=== PATIENT | female | born 1970 | race Caucasian/White ===

== ENCOUNTER 2019-06-02 15:33 | Emergency (ER) | payer MEDICAID ==
[~2019-06-02] VITALS: Ht 154.9 cm; Wt 99.8 kg
[2019-06-02 15:33] VITALS: BP_SYST 128
[2019-06-02] MEDS ORDERED: INSULIN REGULAR, HUMAN 100 UNITS/ML, 10 ML VIAL SUBCUT ONE (15:45)
[2019-06-02] MEDS ORDERED: NACL 0.9% 1,000 ML IV ONE ×2 (15:45→17:45)
[2019-06-02] MEDS ORDERED: INSULIN REGULAR, HUMAN 100 UNITS/ML, 10 ML VIAL (humuLIN R) ONE ×2 (16:06→18:37)
[2019-06-02 16:13] LABS: BASOPHILS # (AUTO) 0.1 K/uL (0.0-0.2); BASOPHILS % (AUTO) 0.7 % (0.0-2.0); EOSINOPHILS # (AUTO) 0.1 K/uL (0.0-0.4); HEMATOCRIT 41.6 % (36-48); HEMOGLOBIN 13.7 g/dL (12.0-16.0); LYMPHOCYTES % (AUTO) 30.7 % (20.5-51.5); MEAN CORPUSCULAR HEMOGLOBIN 28 pg (27-31); MEAN CORPUSCULAR HGB CONC 33 % (32-36); MEAN CORPUSCULAR VOLUME 84 fL (79.0-98.0); MONOCYTES # (AUTO) 0.5 K/uL (0.0-1.0); MONOCYTES % (AUTO) 5.5 % (1.7-9.3); NEUTROPHILS # (AUTO) 6.1 K/uL (1.8-7.7); NEUTROPHILS % (AUTO) 62.1 % (40.0-70.0); PLATELET COUNT (AUTO) 248 K/uL (130-430); RED BLOOD CELL COUNT(AUTO) 4.93 MIL/uL (4.2-6.2); RED CELL DISTRIBUTION WIDTH 14.6 % (9.0-15.0); WHITE BLOOD COUNT (AUTO) 9.9 K/uL (4.8-10.8)
[2019-06-02 16:35] LABS: CALCIUM 9.4 mg/dL (8.4-11.0); CREATININE 0.97 mg/dL (0.55-1.30); POTASSIUM 4.1 mmol/L (3.5-5.1)
[2019-06-02 16:43] LABS: TOTAL BILIRUBIN 0.3 mg/dL (0.0-1.0)
[2019-06-02 16:44] LABS: ALBUMIN 2.9 g/dL (3.4-4.8)
[2019-06-02] MEDS ORDERED: INSULIN REGULAR, HUMAN 100 UNITS/ML, 10 ML VIAL IV ONE (17:45)
[2019-06-02 17:52] LABS: BARBITURATE, URINE NEGATIVE (NEG <=200); BENZODIAZEPINE, URINE NEGATIVE (NEG <=150); CANNABINOID, URINE NEGATIVE (NEG <=50); COCAINE, URINE NEGATIVE (NEG <=150); METHAMPHETAMINES SCREEN,URINE POSITIVE (NEG <=500); OPIATE, URINE NEGATIVE (NEG <=100); PHENCYCLIDINE SCREEN,URINE NEGATIVE (NEG <=25); UR TRICYCLIC ANTIDEPRESSANTS NEGATIVE (NEG <=300); URINE AMPHETAMINE POSITIVE (NEG <=500); URINE METHADONE NEGATIVE (NEG <=200); URINE OXYCODONE SCREEN NEGATIVE (NEG <=100); URINE PROPOXYPHENE SCREEN NEGATIVE (NEG <=300)
[2019-06-02] MEDS ORDERED: MORPHINE 4 MG/ML INJ. SYRINGE IVP ONE (19:15)
[2019-06-02 23:10] VITALS: BP_SYST 115
[2019-06-03 00:38] LABS: BILIRUBIN,URINE NEGATIVE (NEGATIVE); BLOOD, URINE NEGATIVE (NEGATIVE); CLARITY/URINE CLEAR (CLEAR); COLOR,URINE YELLOW (YELLOW); GLUCOSE,URINE 3+ (NEGATIVE); KETONES,URINE NEGATIVE (NEGATIVE); LEUKOCYTE ESTERASE ,URINE NEGATIVE (NEGATIVE); NITRITE, URINE NEGATIVE (NEGATIVE); PH,URINE 5.5 (5.0-8.0); PROTEIN URINE NEGATIVE (NEGATIVE); UROBILINOGEN,URINE 0.2 (0.2-1.0)
[2019-06-03 01:14] LABS: BACTERIA,URINE FEW /HPF (None Seen); RBC,URINE 0-3 /HPF (0-3); WBC,URINE 0-3 /HPF (0-3); YEAST,URINE Few /HPF (None Seen)
== END 2019-06-02 23:41 | disposition short-term general hospital (02) ==
LOC: SED 15:33
DX: E11.65 Type 2 diabetes mellitus with hyperglycemia (principal); F15.10 Other stimulant abuse, uncomplicated; J45.909 Unspecified asthma, uncomplicated; I10 Essential (primary) hypertension; Z86.79 Personal history of other diseases of the circulatory system
CPT/HCPCS: 36415; 80053; 80307; 81000; 82962; 85025; 96361; 96372; 96374; 96375; 99285; J1815; J2270; J7030

== ENCOUNTER 2019-09-02 11:20 | Emergency (ER) | payer MEDICAID ==
[~2019-09-02] VITALS: Ht 157.5 cm; Wt 83.9 kg
[2019-09-02 11:20] VITALS: BP_SYST 113
--- NOTE | 2019-09-02 11:20 | NUR ---
Patient to ER bed 01 to gown for evaluation. Side rails up. Report given to Angela.
--- NOTE | 2019-09-02 11:25 | NUR ---
PT BIB EMS. PER EMS PT WAS AT [facility] WHEN SHE CALLED 911 BECAUSE SHE DIDNT FEEL WELL. PER EMS, BS WAS 484 IN FIELD AND BP WAS 71/45. PER EMS PT AT [facility] COUPLE DAYS AGO FOR SAME THING BUT LWBS BECAUSE SHE DIDNT WANT TO WAIT. PT LETHARGIC. PT HAS NO LABORED BREATHING. PT DENIES PAIN AND SOB. PT STATES SHE IS DIZZY. PT NON COMPLIANT WITH DM MEDS. PT ON MONITOR. WILL CONTINUE TO MONITOR. Addendum: 09/02/19 at 1144 by SEDA PT ALSO COMPLAINING OF URINARY RETENTION AND FEELING LIKE SHE HAS TO URINATE BUT CANT. PT HAS FREQUENCY.
--- NOTE | 2019-09-02 11:28 | NUR ---
ER Dr. VILLALOBOS at bedside examining patient.
[2019-09-02] MEDS ORDERED: NACL 0.9% 1,000 ML IV ONE ×2 (11:30→13:00)
--- NOTE | 2019-09-02 11:53 | NUR ---
PT GETTING X RAY IN BED.
[2019-09-02 12:02] LABS: BASOPHILS % (AUTO) 0.6 % (0.0-2.0); EOSINOPHILS # (AUTO) 0.1 K/uL (0.0-0.4); HEMOGLOBIN 13.8 g/dL (12.0-16.0); LYMPHOCYTES # (AUTO) 2.4 K/uL (1.0-5.5); LYMPHOCYTES % (AUTO) 29.7 % (20.5-51.5); MEAN CORPUSCULAR HEMOGLOBIN 28 pg (27-31); MEAN CORPUSCULAR HGB CONC 33 % (32-36); MEAN CORPUSCULAR VOLUME 86 fL (79.0-98.0); MONOCYTES # (AUTO) 0.5 K/uL (0.0-1.0); MONOCYTES % (AUTO) 5.7 % (1.7-9.3); NEUTROPHILS # (AUTO) 5.2 K/uL (1.8-7.7); PLATELET COUNT (AUTO) 254 K/uL (130-430); RED CELL DISTRIBUTION WIDTH 14.7 % (9.0-15.0); WHITE BLOOD COUNT (AUTO) 8.2 K/uL (4.8-10.8)
[2019-09-02 12:13] LABS: ANION GAP 7 (5-15); CALCIUM 8.5 mg/dL (8.4-11.0); CHLORIDE 98 mmol/L (98-107); CREATININE 1.12 mg/dL (0.55-1.30); POTASSIUM 3.6 mmol/L (3.5-5.1); SODIUM SERUM 132 mmol/L (136-145); UREA NITROGEN, BLOOD 19 mg/dL (8-21)
[2019-09-02 12:19] LABS: ALANINE AMINOTRANSFERASE 21 U/L (12-78); ALBUMIN 2.9 g/dL (3.4-4.8); ASPARTATE AMINOTRANSFERASE 12 U/L (10-37); TOTAL BILIRUBIN 0.5 mg/dL (0.0-1.0)
[2019-09-02 12:24] LABS: GFR AFRICAN AMERICAN 66 mL/min (>90); GLUCOSE 491 mg/dL (70-99)
[2019-09-02 12:36] LABS: BILIRUBIN,URINE NEGATIVE (NEGATIVE); BLOOD, URINE NEGATIVE (NEGATIVE); CLARITY/URINE CLEAR (CLEAR); COLOR,URINE YELLOW (YELLOW); GLUCOSE,URINE 3+ (NEGATIVE); KETONES,URINE NEGATIVE (NEGATIVE); LEUKOCYTE ESTERASE ,URINE TRACE (NEGATIVE); NITRITE, URINE NEGATIVE (NEGATIVE); PROTEIN URINE NEGATIVE (NEGATIVE); UROBILINOGEN,URINE 0.2 (0.2-1.0)
[2019-09-02 12:48] LABS: RBC,URINE 0-3 /HPF (0-3)
[2019-09-02 12:49] LABS: BACTERIA,URINE RARE /HPF (None Seen)
[2019-09-02 12:50] LABS: TRICHOMONAS,URINE Rare /HPF (None Seen)
[2019-09-02 12:51] LABS: ACETONE, SERUM NEGATIVE (NEGATIVE)
[2019-09-02] MEDS ORDERED: INSULIN REGULAR, HUMAN 10 UNITS/0.1 ML INJ IVP ONE (13:00)
[2019-09-02] MEDS ORDERED: POTASSIUM CHLORIDE 10 MEQ TAB.PRT.SR PO ONE (13:00)
[2019-09-02] MEDS ORDERED: MAGNESIUM SULFATE 50 ML IV ONE (13:00)
[2019-09-02 13:05] LABS: INR 0.9 (0.8-1.2); PROTHROMBIN TIME 9.1 SECS (9.5-12.5)
--- NOTE | 2019-09-02 13:15 | NUR ---
Pt moved to bed 07
--- NOTE | 2019-09-02 13:30 | NUR ---
Pt requesting something to eat, Dr Ball notified
[2019-09-02] MEDS ORDERED: ONDANSETRON HCL 4 MG/2 ML VIAL IVP ONE (13:45)
[2019-09-02] MEDS ORDERED: ONDANSETRON HCL 4 MG/2 ML VIAL ONE (13:52)
[2019-09-02] MEDS ORDERED: LEVOFLOXACIN 500 MG/D5W 100 ML IV ONE (14:00)
[2019-09-02] MEDS ORDERED: NS 500 ML IV ONE (14:00)
--- NOTE | 2019-09-02 14:05 | NUR ---
Pt states she does not want to go home, she wants to be admitted
[2019-09-02] MEDS ORDERED: LEVOFLOXACIN 500 MG TABLET PO ONE (14:30)
--- NOTE | 2019-09-02 14:45 | NUR ---
BS 248 at this time, Dr Ball notified, Dr Ball agreeable to give a sandwich, food given to patient, well tolerated.
--- NOTE | 2019-09-02 15:30 | NUR ---
Pt agitated at this time, states she wants a hot dinner ,
--- NOTE | 2019-09-02 15:30 | NUR ---
fuller brush worker at bedside, resources given to patient
--- NOTE | 2019-09-02 15:35 | NUR ---
ER SS consult HOSE SEAMER met w/ Pt. at bedside to provide homeless resources, tap card. Consult w/ MD who reported Pt is malingering and being difficult with staff alluded to S/I. Pt was initially cooperative, she was informed of local homeless shelters, [facility] and [facility] in [place]. Pt. became argumentative when informed she was being D/C from the hospital, she reported she was not leaving until she had " a place to sleep tonight and a meal". She complained that " all those places is just a big run around and [place] I need a place now". HOSE SEAMER informed Pt. that she could assist her setting up an intake and it would be up to her if she decided to follow up. Pt. denied any active S/I alluded " I would if [place] [facility] a [facility] then recanted., appears to manipulating to remain in the hospital as she then states she would not self harm and only needs " a place to stay" HOSE SEAMER confirmed intake for Pt. at [facility] tomorrow at 7am, including an intake at the [facility] today before 530 pm. Pt. was given the information and became more upset and reported that she did not want to participate in any intakes. She was informed of 24/hr emergency shelters in [facility] and she stated that was too far for her. HOSE SEAMER provided Pt. with [facility] information and Mental Health services , suicide hotline. She was not receptive to the information and became more hostile and continued to make curse. Pt. remained demanding and unreasonable. Pt. was provided with transportation and resources, no further intervention required. HOSE SEAMER spoke with RN Pt. is suitable for D/C, security should be called due to escalating behavior, made aware if Pt. continues to make suicidal threats to consult w/ PET. No further intervention at this time.
--- NOTE | 2019-09-02 15:45 | NUR ---
Pt coursing at this time, agitated at this time, security at bedside, pt notified she is discharged by
[2019-09-02 16:00] VITALS: BP_SYST 119
--- NOTE | 2019-09-02 16:00 | NUR ---
Patient given written and verbal discharge instructions and verbalizes understanding. ER MD discussed with patient the results and treatment provided. Patient in stable condition. ID arm band removed. Pt removed IV catheter from L hand, pt combative at this time. Rx of Cipro and Metformin given. Patient educated on pain management and to follow up with PMD. Pain Scale 0/10. Opportunity for questions provided and answered. Medication side effect fact sheet provided.
== END 2019-09-02 16:00 | disposition home or self-care (01) ==
LOC: SED 11:20
DX: E11.65 Type 2 diabetes mellitus with hyperglycemia (principal); N39.0 Urinary tract infection, site not specified; I10 Essential (primary) hypertension; J45.909 Unspecified asthma, uncomplicated; Z86.73 Personal history of transient ischemic attack (TIA), and cerebral infarction without residual deficits; Z86.79 Personal history of other diseases of the circulatory system
CPT/HCPCS: 36415; 71045; 80053; 81000; 82009; 82962; 83605; 84484; 85025; 85610; 85730; 87040; 87086; 93005; 96361; 96365; 96375; 99284; J1815; J2405; J3475; J7030

== ENCOUNTER 2023-10-13 18:07 | Emergency (ER) | payer MEDICAID ==
[~2023-10-13] VITALS: Ht 172.7 cm; Wt 108.9 kg
[2023-10-13 18:20] VITALS: BP_SYST 128; PULSE 74; RESP 18; TEMP 97.7; O2SAT 97
[2023-10-13 20:45] LABS: BILIRUBIN,URINE NEGATIVE (NEGATIVE); BLOOD, URINE 2+ (NEGATIVE); CLARITY/URINE CLEAR (CLEAR); COLOR,URINE YELLOW (YELLOW); GLUCOSE,URINE 1+ (NEGATIVE); KETONES,URINE NEGATIVE (NEGATIVE); LEUKOCYTE ESTERASE ,URINE NEGATIVE (NEGATIVE); NITRITE, URINE NEGATIVE (NEGATIVE); PROTEIN URINE 3+ (NEGATIVE); UROBILINOGEN,URINE 0.2 (0.2-1.0)
[2023-10-13 21:00] LABS: BASOPHILS % (AUTO) 0.3 % (0.0-2.0); EOSINOPHILS # (AUTO) 0.1 K/uL (0.0-0.4); EOSINOPHILS % (AUTO) 1.1 % (0.0-4.0); HEMATOCRIT 30.5 % (36-48); HEMOGLOBIN 9.6 g/dL (12.0-16.0); LYMPHOCYTES # (AUTO) 3.2 K/uL (1.0-5.5); LYMPHOCYTES % (AUTO) 26.9 % (20.5-51.5); MEAN CORPUSCULAR HEMOGLOBIN 25 pg (27-31); MEAN CORPUSCULAR HGB CONC 32 % (32-36); MEAN CORPUSCULAR VOLUME 81 fL (79.0-98.0); MONOCYTES # (AUTO) 0.8 K/uL (0.0-1.0); MONOCYTES % (AUTO) 6.7 % (1.7-9.3); NEUTROPHILS # (AUTO) 7.6 K/uL (1.8-7.7); PLATELET COUNT (AUTO) 286 K/uL (130-430); RED BLOOD CELL COUNT(AUTO) 3.78 MIL/uL (4.2-6.2); RED CELL DISTRIBUTION WIDTH 15.5 % (9.0-15.0); WHITE BLOOD COUNT (AUTO) 11.8 K/uL (4.8-10.8)
[2023-10-13 21:13] LABS: ANION GAP 4 (5-15); CALCIUM 9.3 mg/dL (8.4-11.0); CARBON DIOXIDE 29 mmol/L (23-29); CHLORIDE 102 mmol/L (98-107); CREATININE 0.91 mg/dL (0.55-1.30); GFR AFRICAN AMERICAN 83 mL/min (>90); GLUCOSE 142 mg/dL (74-106); POTASSIUM 4.7 mmol/L (3.5-5.1); SODIUM SERUM 135 mmol/L (136-145); UREA NITROGEN, BLOOD 25 mg/dL (8-21)
[2023-10-13 21:17] LABS: ALANINE AMINOTRANSFERASE 17 U/L (12-78); ASPARTATE AMINOTRANSFERASE 12 U/L (10-37); TOTAL BILIRUBIN 0.1 mg/dL (0.0-1.0)
[2023-10-13 21:24] LABS: BACTERIA,URINE None Seen /HPF (None Seen)
[2023-10-13 21:28] LABS: GFR NON AFRICAN-AMERICAN 68 mL/min (>90)
[2023-10-13 23:48] VITALS: BP_SYST 160; PULSE 84; RESP 18; TEMP 96.9; O2SAT 96
== END 2023-10-13 23:48 | disposition home or self-care (01) ==
LOC: SED 18:07
DX: R60.0 Localized edema (principal); Z79.899 Other long term (current) drug therapy; J45.909 Unspecified asthma, uncomplicated; E11.9 Type 2 diabetes mellitus without complications; I10 Essential (primary) hypertension
CPT/HCPCS: 36415; 71250-TC; 76376; 80053; 81000; 81001; 81015; 84484; 85025; 93005; 99284

== ENCOUNTER 2023-10-28 06:43 | Inpatient (IN) | payer MEDICAID ==
[~2023-10-28] VITALS: Ht 152.4 cm; Wt 98.5 kg
[2023-10-28 06:47] VITALS: BP_SYST 146; PULSE 92; RESP 18; TEMP 98.3; O2SAT 96
[2023-10-28] MEDS ORDERED: NITROGLYCERIN 1 INCH (GM) OINT. TP ONE (07:00)
[2023-10-28 07:24] LABS: BASOPHILS # (AUTO) 0.1 K/uL (0.0-0.2); BASOPHILS % (AUTO) 0.6 % (0.0-2.0); EOSINOPHILS # (AUTO) 0.1 K/uL (0.0-0.4); EOSINOPHILS % (AUTO) 1.1 % (0.0-4.0); HEMOGLOBIN 10.6 g/dL (12.0-16.0); LYMPHOCYTES # (AUTO) 2.5 K/uL (1.0-5.5); LYMPHOCYTES % (AUTO) 21.6 % (20.5-51.5); MEAN CORPUSCULAR HEMOGLOBIN 25 pg (27-31); MEAN CORPUSCULAR HGB CONC 32 % (32-36); MEAN CORPUSCULAR VOLUME 79 fL (79.0-98.0); MONOCYTES # (AUTO) 0.5 K/uL (0.0-1.0); MONOCYTES % (AUTO) 4.6 % (1.7-9.3); NEUTROPHILS # (AUTO) 8.3 K/uL (1.8-7.7); NEUTROPHILS % (AUTO) 72.1 % (40.0-70.0); PLATELET COUNT (AUTO) 314 K/uL (130-430); RED BLOOD CELL COUNT(AUTO) 4.17 MIL/uL (4.2-6.2); RED CELL DISTRIBUTION WIDTH 15.7 % (9.0-15.0); WHITE BLOOD COUNT (AUTO) 11.5 K/uL (4.8-10.8)
[2023-10-28 07:36] LABS: ANION GAP 7 (5-15); CALCIUM 9.5 mg/dL (8.4-11.0); CARBON DIOXIDE 27 mmol/L (23-29); CHLORIDE 102 mmol/L (98-107); CREATININE 0.97 mg/dL (0.55-1.30); GFR AFRICAN AMERICAN 77 mL/min (>90); GLUCOSE 176 mg/dL (74-106); POTASSIUM 4.2 mmol/L (3.5-5.1); SODIUM SERUM 136 mmol/L (136-145); UREA NITROGEN, BLOOD 27 mg/dL (8-21)
[2023-10-28 07:43] LABS: ALANINE AMINOTRANSFERASE 16 U/L (12-78); ALBUMIN 2.2 g/dL (3.4-4.8); ASPARTATE AMINOTRANSFERASE 9 U/L (10-37); TOTAL BILIRUBIN 0.1 mg/dL (0.0-1.0); TOTAL PROTEIN, SERUM 6.5 g/dL (6.4-8.3)
[2023-10-28 07:44] LABS: GFR NON AFRICAN-AMERICAN 63 mL/min (>90)
[2023-10-28 07:45] LABS: BILIRUBIN,DIRECT < 0.1 mg/dL (0.0-0.3)
[2023-10-28] MEDS ORDERED: hydrALAZINE HCL 20 MG/ML VIAL IVP ONE (07:45)
[2023-10-28] MEDS ORDERED: FUROSEMIDE 40 MG/4 ML VIAL IVP ONE (08:15)
[2023-10-28] MEDS ORDERED: BENZ9GEL (10:06)
[2023-10-28] MEDS ORDERED: ACET325C6 PO (10:06)
[2023-10-28] MEDS ORDERED: GLUC0.5A (10:19)
[2023-10-28] MEDS ORDERED: HYDR-3919 (10:19)
[2023-10-28] MEDS ORDERED: [UNRECOGNIZED DRUG - CODE] (10:19)
[2023-10-28] MEDS ORDERED: [UNRECOGNIZED DRUG - CODE] (10:19)
[2023-10-28] MEDS ORDERED: LACT10SO7 (10:19)
[2023-10-28] MEDS ORDERED: PREG100C (10:19)
[2023-10-28] MEDS ORDERED: [UNRECOGNIZED DRUG - CODE] (10:19)
[2023-10-28] MEDS ORDERED: MELA1TAB54 (10:19)
[2023-10-28] MEDS ORDERED: LORA-259 (10:19)
[2023-10-28] MEDS ORDERED: NITR-85 (10:19)
[2023-10-28] MEDS ORDERED: BISA10SU61 (10:19)
[2023-10-28] MEDS ORDERED: INSU100V (10:19)
[2023-10-28] MEDS ORDERED: DOCU250C30 (10:19)
[2023-10-28] MEDS ORDERED: [UNRECOGNIZED DRUG - CODE] (10:19)
[2023-10-28] MEDS ORDERED: SERT100T (10:19)
[2023-10-28] MEDS ORDERED: AMIN30LI31 (10:19)
[2023-10-28] MEDS ORDERED: LIDO700A30 (10:19)
[2023-10-28] MEDS ORDERED: CETI10CA11 (10:19)
[2023-10-28] MEDS ORDERED: cloNIDine HCL 0.1 MG TABLET PO ONE (10:30)
[2023-10-28] MEDS ORDERED: NALOXONE HCL 0.4 MG/ML AMP (NARCAN) IVP PRN ×2 (11:00)
[2023-10-28] MEDS ORDERED: ONDANSETRON HCL 4 MG/2 ML VIAL IVP PRN (11:00)
[2023-10-28] MEDS ORDERED: HYDROcodone/ACETAMIN 5-325 MG TAB (NORCO/ VICODIN) PO PRN ×2 (11:00)
[2023-10-28] MEDS ORDERED: ACETAMINOPHEN 325 MG TABLET PO PRN ×2 (11:00→11:15)
[2023-10-28] MEDS: NORMAL SALINE 5 ML DISP.SYRIN IVF SCH ×2 (15:19→22:00)
[2023-10-28 16:09] VITALS: BP_SYST 206; PULSE 92; RESP 17; TEMP 98; O2SAT 100
[2023-10-28 18:47] VITALS: BP_SYST 106; PULSE 92; RESP 17; TEMP 98
[2023-10-28] MEDS ORDERED: MELATONIN 3 MG TABLET PO PRN (19:30)
[2023-10-28] MEDS ORDERED: INSULIN REGULAR, HUMAN 100 UNITS/ML, 3 ML VIAL (humuLIN R) SUBCUT PRN (19:30)
[2023-10-28 20:00] VITALS: BP_SYST 155; PULSE 96; RESP 20; TEMP 97.8; O2SAT 98
[2023-10-28] MEDS: oxyCODONE HCL 10 MG TAB.ER.12H PO SCH (21:00)
[2023-10-28] MEDS: DOCUSATE SODIUM 250 MG CAPSULE PO SCH (21:01)
[2023-10-28] MEDS: NAPROXEN 250 MG TABLET PO SCH (21:03)
[2023-10-29] MEDS: NORMAL SALINE 5 ML DISP.SYRIN IVF SCH ×3 (06:08→22:48)
[2023-10-29 08:34] VITALS: O2SAT 97
[2023-10-29] MEDS ORDERED: hydrALAZINE HCL 20 MG/ML VIAL IVP PRN (09:30)
[2023-10-29] MEDS ORDERED: NALOXONE HCL 0.4 MG/ML AMP (NARCAN) IVP PRN (09:45)
[2023-10-29] MEDS ORDERED: MORPHINE 2 MG/ML INJ. SYRINGE IVP ONE (09:45)
[2023-10-29 09:53] LABS: BASOPHILS % (AUTO) 0.2 % (0.0-2.0); EOSINOPHILS # (AUTO) 0.1 K/uL (0.0-0.4); EOSINOPHILS % (AUTO) 0.9 % (0.0-4.0); HEMATOCRIT 29.5 % (36-48); HEMOGLOBIN 9.9 g/dL (12.0-16.0); LYMPHOCYTES # (AUTO) 2.7 K/uL (1.0-5.5); LYMPHOCYTES % (AUTO) 26.1 % (20.5-51.5); MEAN CORPUSCULAR HEMOGLOBIN 27 pg (27-31); MEAN CORPUSCULAR HGB CONC 34 % (32-36); MEAN CORPUSCULAR VOLUME 79 fL (79.0-98.0); MONOCYTES # (AUTO) 0.7 K/uL (0.0-1.0); MONOCYTES % (AUTO) 6.8 % (1.7-9.3); NEUTROPHILS # (AUTO) 6.9 K/uL (1.8-7.7); PLATELET COUNT (AUTO) 286 K/uL (130-430); RED BLOOD CELL COUNT(AUTO) 3.76 MIL/uL (4.2-6.2); RED CELL DISTRIBUTION WIDTH 15.4 % (9.0-15.0); WHITE BLOOD COUNT (AUTO) 10.4 K/uL (4.8-10.8)
[2023-10-29] MEDS: LORATADINE 10 MG TABLET PO SCH (09:58)
[2023-10-29] MEDS: SERTRALINE HCL 50 MG TABLET PO SCH (09:58)
[2023-10-29] MEDS: PREGABALIN 25 MG CAPSULE (LYRICA) PO SCH (09:58)
[2023-10-29] MEDS: LACTULOSE 20 GM/30 ML UDC PO SCH (10:05)
[2023-10-29] MEDS: oxyCODONE HCL 10 MG TAB.ER.12H PO SCH ×2 (10:06→22:47)
[2023-10-29] MEDS ORDERED: ASPIRIN 81 MG TABLET(ECOTRIN) PO ONE (10:15)
[2023-10-29] MEDS ORDERED: HEPARIN SODIUM,PORCINE 5,000 UNITS/ML VIAL SUBCUT ONE (10:15)
[2023-10-29] MEDS ORDERED: LOSARTAN POTASSIUM 25 MG TABLET PO ONE (10:15)
[2023-10-29] MEDS ORDERED: ATORVASTATIN 20 MG TABLET PO ONE (10:15)
[2023-10-29 10:18] LABS: CALCIUM 8.8 mg/dL (8.4-11.0); CREATININE 1.03 mg/dL (0.55-1.30); PHOSPHORUS 5.3 mg/dL (2.7-4.5); POTASSIUM 4.3 mmol/L (3.5-5.1)
[2023-10-29] MEDS: NAPROXEN 250 MG TABLET PO SCH ×2 (10:37→22:46)
[2023-10-29 11:06] VITALS: BP_SYST 138; PULSE 54; RESP 16; TEMP 97.5; O2SAT 91
[2023-10-29 15:00] VITALS: BP_SYST 141; PULSE 57; RESP 16; TEMP 97.7; O2SAT 96
[2023-10-29 19:35] VITALS: BP_SYST 145; PULSE 88; RESP 18; TEMP 98.6; O2SAT 96
[2023-10-29] MEDS: DOCUSATE SODIUM 250 MG CAPSULE PO SCH (22:45)
[2023-10-29] MEDS: LOSARTAN POTASSIUM 25 MG TABLET PO SCH (22:47)
[2023-10-29] MEDS: HEPARIN SODIUM,PORCINE 5,000 UNITS/ML VIAL SUBCUT SCH (22:56)
[2023-10-30 01:11] VITALS: BP_SYST 140; PULSE 81; RESP 17; TEMP 96.9; O2SAT 96
[2023-10-30] MEDS: NORMAL SALINE 5 ML DISP.SYRIN IVF SCH (06:20)
[2023-10-30 08:00] VITALS: BP_SYST 141; PULSE 87; RESP 16; TEMP 96; O2SAT 96
[2023-10-30] MEDS: LACTULOSE 20 GM/30 ML UDC PO SCH (08:21)
[2023-10-30] MEDS: PREGABALIN 25 MG CAPSULE (LYRICA) PO SCH (08:22)
[2023-10-30] MEDS: NAPROXEN 250 MG TABLET PO SCH (08:22)
[2023-10-30] MEDS: LORATADINE 10 MG TABLET PO SCH (08:22)
[2023-10-30] MEDS: SERTRALINE HCL 50 MG TABLET PO SCH (08:23)
[2023-10-30] MEDS: LOSARTAN POTASSIUM 25 MG TABLET PO SCH (08:23)
[2023-10-30] MEDS: oxyCODONE HCL 10 MG TAB.ER.12H PO SCH (08:23)
[2023-10-30] MEDS: HEPARIN SODIUM,PORCINE 5,000 UNITS/ML VIAL SUBCUT SCH (08:25)
[2023-10-30] MEDS ORDERED: ASPIRIN 81 MG TABLET(ECOTRIN) PO SCH (09:00)
[2023-10-30] MEDS ORDERED: ATORVASTATIN 20 MG TABLET PO SCH (09:00)
[2023-10-30] MEDS ORDERED: Aspirin Ec PO (11:02)
[2023-10-30] MEDS ORDERED: LOSA-412 PO (11:02)
[2023-10-30] MEDS ORDERED: LIP20 PO (11:02)
[2023-10-30] MEDS: LORazepam 2 MG/ML VIAL IVP PRN ×2 (12:55→20:04)
[2023-10-30 15:00] VITALS: BP_SYST 141; PULSE 56; RESP 16; TEMP 97.1; O2SAT 93
[2023-10-30 18:18] VITALS: BP_SYST 141; PULSE 56; RESP 16; TEMP 97.1; O2SAT 93
== END 2023-10-30 20:25 | DRG 199 ==
LOC: SED 06:43 → STU 08:43 → SMU 10-29 23:38
PROVIDERS: ADMIT Preventive Medicine Preventive Medicine/Occupational Environmental Medicine; ATTEND Preventive Medicine Preventive Medicine/Occupational Environmental Medicine
DX: I16.0 Hypertensive urgency (principal); E43 Unspecified severe protein-calorie malnutrition; I42.9 Cardiomyopathy, unspecified; E88.09 Other disorders of plasma-protein metabolism, not elsewhere classified; I69.354 Hemiplegia and hemiparesis following cerebral infarction affecting left non-dominant side; E11.65 Type 2 diabetes mellitus with hyperglycemia; D64.9 Anemia, unspecified; D72.829 Elevated white blood cell count, unspecified; I25.10 Atherosclerotic heart disease of native coronary artery without angina pectoris; J45.909 Unspecified asthma, uncomplicated; I10 Essential (primary) hypertension; Z68.42 Body mass index [BMI] 45.0-49.9, adult
CPT/HCPCS: 36415; 71045; 80048; 80076; 82962; 83735; 83880; 84100; 84484; 85025; 87081; 93005; 93306; 93970; 96374; 96375; 99285; G0378; J0360; J1644; J1815; J1940; J2060; J2270